=== PATIENT | female | born 1995 | race African-American/Black ===

== ENCOUNTER 2020-08-13 16:58 | Emergency (ER) | payer OTHER ==
[~2020-08-13] VITALS: Ht 170.2 cm; Wt 99.8 kg
[2020-08-13 17:13] VITALS: BP 145/87
--- NOTE | 2020-08-13 17:21 | Emergency Room Report ---
History of Present Illness General Chief Complaint: Skin Rash/Abscess Source: Patient Present Illness HPI 24 YO female presents to the ED c/o 06/29 in severity painful rash to the left posterior buttock and thigh that has been progressive x 3 days. Pt. reports originally started as a painful blister in the left buttock area. Patient thought that this was a spider bite. Patient states she applied hydrocortisone cream. Patient reports upon awakening the next morning the rash was much more extensive and had spread. Pt. denies fevers, chills or swollen tender lymph nodes. Denies lesions/rashes elsewhere on the body. Denies new medications or body washes or creams. She denies ocular involvement. Denies facial lesions. Denies swelling of the lips, tongue , throat or airway. Denies wheezing, or shortness of breath. Denies recent travel, recent illness or ill contacts. denies blisters, oral lesions, or sloughing of the skin. She is not sure if she had the chicken pox or not in her childhood. 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 Patient History Past Medical History: see triage record Past Surgical History: none Pertinent Family History: none Last Menstrual Period: 07/15/2020 Now: No Reviewed Nursing Documentation: PMH: Agreed; PSxH: Agreed Nursing Documentation-PMH Past Medical History: No Stated History Review of Systems All Other Systems: negative except mentioned in HPI Physical Exam Vital Signs Date Time Temp Pulse Resp B/P (MAP) Pulse Ox O2 Delivery O2 Flow Rate FiO2 08/13/20 17:04 97.9 98 20 145/87 (106) 99 Room Air Sp02 EP Interpretation: reviewed, normal General Appearance: no apparent distress, alert, GCS 15, non-toxic Head: normocephalic, atraumatic Eyes: bilateral eye normal inspection, bilateral eye PERRL, bilateral eye other - NO evidence of rash ENT: hearing grossly normal, normal voice Neck: full range of motion Respiratory: chest non-tender, lungs clear, normal breath sounds, no wheezing, speaking full sentences Cardiovascular #1: regular rate, rhythm Musculoskeletal: normal range of motion, gait/station normal, non-tender Neurologic: alert, motor strength/tone normal, oriented x3, sensory intact, responsive, speech normal Psychiatric: judgement/insight normal Skin: rash - Shingles outbreak to the S2 dermatome: vesicular lesions that are grouped and do not cross the midline. There is no surrounding erythema to suggest cellulitis. NO purulent d/c noted. Lymphatic: no adenopathy Medical Decision Making PA Attestation Dr. Mora Is my supervising Physician whom patient management has been discussed with. Diagnostic Impression: Primary Impression: Shingles rash Qualified Codes: B02.9 - Zoster without complications Additional Impression: Rash and other nonspecific skin eruption ER Course 24 YO female presents to the ED c/o 06/29 in severity painful rash to the left posterior buttock and thigh that has been progressive x 3 days. Pt. reports originally started as a painful blister in the left buttock area. Patient thought that this was a spider bite. Patient states she applied hydrocortisone cream. Patient reports upon awakening the next morning the rash was much more extensive and had spread. Pt. denies fevers, chills or swollen tender lymph nodes. Denies lesions/rashes elsewhere on the body. Denies new medications or body washes or creams. She denies ocular involvement. Denies facial lesions. Denies swelling of the lips, tongue , throat or airway. Denies wheezing, or shortness of breath. Denies recent travel, recent illness or ill contacts. denies blisters, oral lesions, or sloughing of the skin. She is not sure if she had the chicken pox or not in her childhood. Ddx considered but are not limited to cellulitis, Shingles, chicken pox, burn, Vital signs: are WNL, pt. is afebrile H&PE are most consistent with Shingles outbreak to the S2 dermatome: vesicular lesions that are grouped and do not cross the midline. There is no surrounding erythema to suggest cellulitis. NO purulent d/c noted. ORDERS: none required at this time, the diagnosis is clinical ED INTERVENTIONS: None required at this time. DISCHARGE: At this time pt. is stable for d/c to home. Will provide printed patient care instructions, and any necessary prescriptions. Care plan and follow up instructions have been discussed with the patient prior to discharge. 800mg Acyclovir 5x daily for 7 days. Last Vital Signs Date Time Temp Pulse Resp B/P (MAP) Pulse Ox O2 Delivery O2 Flow Rate FiO2 10/25/20 17:13 97.9 87 20 145/87 99 Room Air Disposition: HOME, SELF-CARE Condition: Stable Scripts Acetaminophen With Codeine (T#3) (TYLENOL #3 TAB*) Y Tab 1 TAB ORAL Q6H PRN for For Pain, #12 TAB Prov: Yuliya Gomez 08/13/20 Acyclovir* (ZOVIRAX*) 800 Mg Tablet 800 MG ORAL FIVE TIMES A DAY for 7 Days, #35 TAB Prov: Yuliya Gomez 08/13/20 Referrals: Shar[facility] Patient Instructions: Rash, [id number], Shingles Additional Instructions: Take medications as directed. Do not drink alcohol, drive, or operate heavy machinery while taking Tylenol # 3 as this may cause drowsiness. Follow up with a Primary Care Provider in 3-5 days, even if your symptoms have resolved. --Please review list of primary care clinics, if you do not already have a primary care provider Return sooner to ED if new symptoms occur, or current symptoms become worse. - Please note that this Emergency Department Report was dictated using [employer]upper shaper technology software, occasionally this can lead to erroneous entry secondary to interpretation by the dictation equipment. Yuliya Gomez Aug 13, 2020 17:21
[2020-08-13] MEDS ORDERED: ACETAMINOPHEN-1 EAC1 ORAL (17:22)
[2020-08-13] MEDS ORDERED: ACYCLOVIR800 MG ORAL (17:22)
[2020-08-13 17:27] VITALS: BP 145/87
== END 2020-08-13 17:30 | disposition home or self-care (01) ==
LOC: EMR 17:10
DX: B02.9 Zoster without complications (principal); R21 Rash and other nonspecific skin eruption
CPT/HCPCS: 99282